=== PATIENT | female | born 1985 | race Caucasian/White ===

== ENCOUNTER 2017-11-17 16:58 | Outpatient (CLI) | payer BC ==
[~2017-11-17] VITALS: Ht 165.1 cm; Wt 77.7 kg
[~2017-11-17 16:58] MED LIST: MOTRIN 600600 MG/TAB PO; PERCOCET 325 MG1 TA2 PO; PRENATAL1 TA7 PO
[2017-11-17 17:09] VITALS: BP 117/65; PULSE 74; TEMP 98.3
[2017-11-17 17:47] VITALS: BP 108/68; PULSE 79
== END 2017-11-17 17:54 | disposition home or self-care (01) ==
LOC: LDRO 16:58
DX: O36.8130 Decreased fetal movements, third trimester, not applicable or unspecified (principal); Z3A.37 37 weeks gestation of pregnancy

== ENCOUNTER 2017-11-25 17:40 | Outpatient (CLI) | payer BC ==
[~2017-11-25] VITALS: Ht 165.1 cm; Wt 79.1 kg
[2017-11-25 17:58] VITALS: BP 120/71; PULSE 83; TEMP 97.8
[2017-11-25 20:05] VITALS: BP 110/59; PULSE 74
== END 2017-11-25 20:15 | disposition home or self-care (01) ==
LOC: LDRO 17:40
DX: O62.9 Abnormality of forces of labor, unspecified (principal); Z3A.38 38 weeks gestation of pregnancy

== ENCOUNTER 2017-12-07 01:44 | Inpatient (IN) | payer BC ==
[~2017-12-07] VITALS: Ht 162.6 cm; Wt 80.5 kg
[2017-12-07] VITALS (41 sets, daily range): BP systolic 103–126; BP diastolic 56–73; PULSE 51–80; TEMP 97.3–98.4
[2017-12-07 02:55] LABS: BASO % 0.3 % (0.0-2.0); EOS # 0.1 (0.0-0.7); EOS % 0.5 % (0-4.0); GRAN # 9.3 (1.4-6.5); GRAN % 79.6 % (42.2-75.2); HEMOGLOBIN 10.6 g/dl (12.5-16.0); LYMPH # 1.5 (1.2-3.4); LYMPH % 12.9 % (20.0-51.0); MEAN CELL VOLUME 92 fl (80.0-100.0); MEAN CORPUSCULAR HEMOGLOBIN 31 pg (27.0-31.0); MEAN CORPUSCULAR HGB CONC 33 g/dl (33.0-37.0); MEAN PLATELET VOLUME 10.2 fl (7.4-10.4); MONO # 0.7 (0.1-0.6); MONO % 6.2 % (1.7-9.3); PLATELET COUNT 242 K/mm3 (130-400); RED BLOOD COUNT 3.47 M/mm3 (4.10-5.30); REDCELL DISTRIBUTION WIDTH-CV 12.6 % (11.5-14.5)
[2017-12-07 02:56] LABS: HEMATOCRIT 31.9 % (37.0-47.0)
[2017-12-08 01:17] VITALS: BP 106/60; PULSE 69; TEMP 98.9
[2017-12-08 04:48] VITALS: BP 102/68; PULSE 58; TEMP 97.6
[2017-12-08 07:46] VITALS: BP 106/63; PULSE 70; TEMP 97.1
[2017-12-08] MEDS ORDERED: IBU600 MG PO (09:20)
== END 2017-12-08 13:00 | disposition home or self-care (01) | DRG 775 ==
LOC: LDRO 01:44 → LDR 02:19 → OB 11:39
PROVIDERS: Obstetrics & Gynecology
PROC: 10E0XZZ Delivery of Products of Conception, External Approach (ICD-10-PCS; principal; 2017-12-07)
PROC: 0KQM0ZZ Repair Perineum Muscle, Open Approach (ICD-10-PCS; 2017-12-07)
DX: O99.824 Streptococcus B carrier state complicating childbirth (principal); O70.1 Second degree perineal laceration during delivery; O99.613 Diseases of the digestive system complicating pregnancy, third trimester; K90.0 Celiac disease; Z3A.40 40 weeks gestation of pregnancy; Z37.0 Single live birth
CPT/HCPCS: J2405; J2540; J2590; J7120

== ENCOUNTER 2019-12-22 03:10 | Inpatient (IN) | payer BC ==
[2019-12-22] VITALS (46 sets, daily range): BP systolic 98–1113; BP diastolic 56–78; PULSE 57–112; TEMP 97.4–98.4
[~2019-12-22] VITALS: Ht 165.1 cm; Wt 81.8 kg
[~2019-12-22 03:10] MED LIST changes: +IBU600 MG PO
[2019-12-22 05:06] LABS: BASO % 0.2 % (0.0-2.0); EOS # 0.1 (0.0-0.7); EOS % 1.1 % (0-4.0); GRAN # 6.6 (1.4-6.5); GRAN % 67.2 % (42.2-75.2); HEMOGLOBIN 10.2 g/dl (12.5-16.0); LYMPH # 2.1 (1.2-3.4); LYMPH % 21.5 % (20.0-51.0); MEAN CELL VOLUME 93 fl (80.0-100.0); MEAN CORPUSCULAR HEMOGLOBIN 30 pg (27.0-31.0); MEAN CORPUSCULAR HGB CONC 32 g/dl (33.0-37.0); MEAN PLATELET VOLUME 10.7 fl (7.4-10.4); MONO # 0.9 (0.1-0.6); MONO % 9.1 % (1.7-9.3); PLATELET COUNT 234 K/mm3 (130-400); RED BLOOD COUNT 3.42 M/mm3 (4.10-5.30); REDCELL DISTRIBUTION WIDTH-CV 12.5 % (11.5-14.5)
[2019-12-22 05:09] LABS: HEMATOCRIT 31.7 % (37.0-47.0)
--- NOTE | 2019-12-22 14:14 | NUR ---
BY DR TRIMBLE AT 1414. VIABLE MALE INFANT TO MOTHERS CHEST IN CARE OF BEBO DEVINE RN. PLACENTA SPON DELIVERED AT 1423. 2ND DEGREE REAPIRED BY DR TRIMBLE. PITOCIN TO 333 MLS/ HR AT 1423. FUNDAL MASSAGE PROVIDED. ICE PACK TO PERINEUM. RECOVERY STARTED AT 1430.
--- NOTE | 2019-12-22 16:20 | NUR ---
PATIENT SAT AT EDGE OF BED, PATIENT UNABLE TO MOVE LEGS ORE BARE WEIGHT. FRESH GOWN PROVIDED. EPIDURAL REMOVED
--- NOTE | 2019-12-22 17:25 | NUR ---
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
--- NOTE | 2019-12-23 04:30 | NUR ---
PARENTS IN NSY TO BE WITH BABY EVALUATED
[2019-12-23 06:47] VITALS: BP 107/70; PULSE 69; TEMP 98.2
[2019-12-23] MEDS ORDERED: IBU800 M1 PO ×2 (08:05→08:16)
[2019-12-23] MEDS ORDERED: PERCOCET 325 MG1 TA2 PO (08:06)
== END 2019-12-23 10:00 | disposition home or self-care (01) | DRG 807 ==
LOC: LDR 03:10 → OB 20:30
PROVIDERS: Obstetrics & Gynecology; ADMIT Student in an Organized Health Care Education/Training Program
PROC: 10907ZC Drainage of Amniotic Fluid, Therapeutic from Products of Conception, Via Natural or Artificial Opening (ICD-10-PCS; principal; 2019-12-22)
PROC: 10E0XZZ Delivery of Products of Conception, External Approach (ICD-10-PCS; 2019-12-22)
PROC: 0KQM0ZZ Repair Perineum Muscle, Open Approach (ICD-10-PCS; 2019-12-22)
DX: O70.1 Second degree perineal laceration during delivery (principal); Z37.0 Single live birth; Z3A.39 39 weeks gestation of pregnancy
CPT/HCPCS: J2590; J7120